=== PATIENT | female | born 1940 | race Caucasian/White ===

== ENCOUNTER 2017-09-21 12:04 | Emergency (ER) | payer MEDICARE | END 2017-09-21 14:26 | disposition home or self-care (01) | LOC: EDH 12:04 | DX: S81.811D Laceration without foreign body, right lower leg, subsequent encounter (principal); B95.62 Methicillin resistant Staphylococcus aureus infection as the cause of diseases classified elsewhere; I10 Essential (primary) hypertension; Z88.6 Allergy status to analgesic agent; X58.XXXD Exposure to other specified factors, subsequent encounter ==